=== PATIENT | female | born 1975 | race Caucasian/White ===

== ENCOUNTER 2020-07-01 23:33 | Emergency (ER) | payer SELFPAY ==
[~2020-07-01] VITALS: Ht 147.3 cm; Wt 100.2 kg
[2020-07-01 23:36] VITALS: BP 122/90
--- NOTE | 2020-07-01 23:43 | NUR ---
Pt ambulated to restroom w/ steady gait.
--- NOTE | 2020-07-01 23:46 | NUR ---
Pt ambulated to ER bed 6 w/ steady gait.
--- NOTE | 2020-07-01 23:50 | NUR ---
PATIENT PRESENTS TO ED WITH C/O HIGH BP . DENIES N/V/D; SKIN IS PINK/WARM/DRY; AAOX4 WITH EVEN AND STEADY GAIT; LUNGS CLEAR BL; HR EVEN AND REGULAR; PT DENIES ANY FEVER, CP, SOB, OR COUGH AT THIS TIME;VSS; PATIENT POSITIONED FOR COMFORT; HOB ELEVATED; BEDRAILS UP X2; BED DOWN. ER MD MADE AWARE OF PT STATUS.
[2020-07-01] MEDS ORDERED: lisinopriL 20 MG TAB PO ONE (23:55)
[2020-07-02 00:22] LABS: APPEARANCE,URINE CLEAR (CLEAR); BILIRUBIN,URINE NEGATIVE (NEGATIVE); BLOOD, URINE 3+ (NEGATIVE); LEUKOCYTE ESTERASE ,URINE TRACE (NEGATIVE); NITRITE, URINE NEGATIVE (NEGATIVE); PH,URINE 6.5 (5.0-9.0); UGLUCOSE NEGATIVE (NEGATIVE)
[2020-07-02 00:23] LABS: HEMATOCRIT 31.9 % (36-48); HEMOGLOBIN 9.9 g/dL (12.0-16.0); MEAN CORPUSCULAR HEMOGLOBIN 21 pg (27-31); MEAN CORPUSCULAR HGB CONC 31 g/dL (33-37); MEAN CORPUSCULAR VOLUME 66.2 fL (80-94); PLATELET COUNT (AUTO) 267 K/uL (140-450); RED BLOOD CELL COUNT(AUTO) 4.82 MIL/uL (4.20-5.40); RED CELL DISTRIBUTION WIDTH 19.6 % (11.6-13.7); WHITE BLOOD COUNT (AUTO) 11.1 K/uL (4.8-10.8)
--- NOTE | 2020-07-02 00:23 | NUR ---
RAD AT BEDSIDE
[2020-07-02 00:36] LABS: COLOR,URINE SLIGHT BLOODY (YELLOW)
[2020-07-02 00:37] LABS: RBC,URINE 50-80 /HPF (0-5); WBC,URINE 0-5 /HPF (0-5)
[2020-07-02 00:55] LABS: ALBUMIN 3.5 g/dL (3.4-5.0); CARBON DIOXIDE 22.9 mmol/L (21-32); CHOL/HDL RATIO 4.3 (1-4.5); CREATININE 0.6 mg/dL (0.6-1.3); POTASSIUM 3.9 mmol/L (3.5-5.1); TOTAL BILIRUBIN 0.2 mg/dL (0.0-1.0)
[2020-07-02 00:59] LABS: EOSINOPHILS % (MANUAL) 2 % (0-4); LYMPHOCYTES % (MANUAL) 16 % (20-46); MONOCYTES % (MANUAL) 2 % (5-12)
[2020-07-02] MEDS ORDERED: HYDR-39 PO (01:38)
--- NOTE | 2020-07-02 01:41 | NUR ---
Patient discharged with v/s stable. Written and verbal after care instructions given and explained. Patient alert, oriented and verbalized understanding of instructions. Ambulatory with steady gait. All questions addressed prior to discharge. ID band removed. Patient advised to follow up with PMD. Rx of LISINOPRIL given. Patient educated on indication of medication including possible reaction and side effects. Opportunity to ask questions provided and answered.
[2020-07-02 01:45] VITALS: BP 154/95
== END 2020-07-02 01:41 | disposition home or self-care (01) ==
LOC: MED 23:33
DX: R51.9 Headache, unspecified (principal); I10 Essential (primary) hypertension; Z79.899 Other long term (current) drug therapy
CPT/HCPCS: 36415; 71045; 80053; 81001; 84443; 84484; 85025; 93005; 99285